=== PATIENT | female | born 1945 | race African-American/Black ===

== ENCOUNTER → 2016-09-08 | Outpatient (CLI) | payer BC ==
[2015-08-20 11:00] VITALS: BP 141/80
[~2016-09-08] MED LIST: ACET325T9 PO; ASPI-482 PO; DILT240C2 PO; HYDR-2868 PO; LOSA100T6 PO; MULT1TAB52 PO; OMEP20CA9 PO
--- NOTE | 2016-09-08 13:55 | RAD ---
DATE: 09/08/2016 EXAM: DIGITAL SCREEN BILAT W/CAD HISTORY: Breast nodule follow-up COMPARISON: 05/22/2015, 11/18/2014 This study was interpreted with the benefit of Computerized Aided Detection (CAD). The breast parenchyma shows scattered fibroglandular densities. Breast parenchyma level B. FINDINGS: There are scattered fibroglandular densities in both breasts in a multinodular pattern. No new or enlarging breast densities are seen. A biopsy marker is again noted laterally in the right breast. Calcifications located just anterior to the biopsy marker have coarsened. These have a benign appearance. There are other scattered benign type calcifications in both breasts. No suspicious microcalcifications have developed. IMPRESSION: Stable breast nodules suggesting a benign etiology. BI-RADS CATEGORY: 2 BENIGN FINDING(S) RECOMMENDED FOLLOW-UP: 12M 12 MONTH FOLLOW-UP PQRS compliance statement: Patient information was entered into a reminder system with a target due date for the next mammogram. Mammography is a sensitive method for finding small breast cancers, but it does not detect them all and is not a substitute for careful clinical examination. A negative mammogram does not negate a clinically suspicious finding and should not result in delay in biopsying a clinically suspicious abnormality. "Our facility is accredited by the [employer] Mammography Program."
== END | disposition home or self-care (01) ==
LOC: MAMMO 12:37
PROVIDERS: ATTEND Family Medicine
DX: Z12.31 Encounter for screening mammogram for malignant neoplasm of breast (principal)
CPT/HCPCS: G0202; 77067

== ENCOUNTER → 2017-02-13 | Outpatient (CLI) | payer BC ==
[2015-08-20 11:00] VITALS: BP 141/80
--- NOTE | 2017-02-13 16:18 | RAD ---
APPROVED REPORT Bilateral Lower Extremity Venous Study for DVT Patient Location: OUT-PATIENT Indications Lower Extremity Pain: Bilateral Lower Extremity Edema: Bilateral Vein Imaging (Right) CFV (R): Compressible SFJ (R): Compressible FEM (R): Compressible POP (R): Compressible DFV (R): Compressible PTV (R): Spontaneous GSV (R): Spontaneous Peroneals (R): Spontaneous Vein Imaging (Left) CFV (L): Compressible SFJ (L): Compressible FEM (L): Compressible POP (L): Compressible DFV (L): Compressible PTV (L): Spontaneous GSV (L): Spontaneous Peroneals (L): Spontaneous Doppler Evaluation (Right) CFV (R): Spontaneous POP (R):Spontaneous Doppler Evaluation (Left) CFV (L):Spontaneous POP (L):Spontaneous Findings Grayscale images of the bilateral deep veins were obtained and they appear to be fully compressible o n transfers imaging. Due to body habitus the below-knee veins and the superficial femoral vein were n ot well visualized but within these limitations the veins appear to be compressible. Color Doppler an d spectral images demonstrate normal flow patterns without any obstruction to flow. Critical Notification Critical Value: No <Conclusion> No evidence of thrombus in the bilateral lower extremity deep veins. Technically difficult study.
== END | disposition home or self-care (01) ==
LOC: US 15:15
PROVIDERS: ATTEND Internal Medicine Cardiovascular Disease
DX: I87.2 Venous insufficiency (chronic) (peripheral) (principal)
CPT/HCPCS: 93970

== ENCOUNTER → 2017-10-16 | Outpatient (CLI) | payer BC | END | disposition home or self-care (01) | LOC: ECHO 13:43 | DX: I07.1 Rheumatic tricuspid insufficiency (principal); R01.1 Cardiac murmur, unspecified | CPT/HCPCS: 93306 ==

== ENCOUNTER → 2017-10-30 | Outpatient (CLI) | payer BC | END | disposition home or self-care (01) | LOC: US 15:45 | DX: I70.293 Other atherosclerosis of native arteries of extremities, bilateral legs (principal); I10 Essential (primary) hypertension; K21.9 Gastro-esophageal reflux disease without esophagitis; Z96.653 Presence of artificial knee joint, bilateral; Z96.661 Presence of right artificial ankle joint; Z96.662 Presence of left artificial ankle joint | CPT/HCPCS: 93925; 93970 ==

== ENCOUNTER 2017-12-18 17:26 | Inpatient (IN) | payer BC ==
[~2017-12-18] VITALS: Ht 157.5 cm; Wt 73.0 kg
[~2017-12-18 17:26] MED LIST changes: -LOSA100T6 PO; +LOSA100T7 PO
[2017-12-18] MEDS ORDERED: PANTOPRAZOLE SODIUM IV DRIP 80 MG in IV NORMAL SALINE 100ML 100 ML IV ONE (19:30)
[2017-12-18] MEDS ORDERED: PANTOPRAZOLE IV PUSH 40 MG VIAL. IVP ONE (19:30)
[2017-12-18] MEDS ORDERED: IV NORMAL SALINE 1000ML BAG 1,000 ML IV ONE ×3 (19:30→21:30)
[2017-12-18] MEDS ORDERED: ONDANSETRON PF 4 MG/2 ML VIAL. ONE (19:31)
[2017-12-18 19:38] LABS: BASO % 0 % (0-3); EOS % 1 % (0-3); HEMATOCRIT 29.8 % (36.0-47.0); HEMOGLOBIN 9.9 g/dL (12.0-15.5); LYMPH # 2.4 x10^3/uL (1.0-4.8); LYMPH % 28 % (24-48); MEAN CORPUSCULAR HEMOGLOBIN 30 pg (25-35); MEAN CORPUSCULAR HGB CONC 33 g/dL (31-37); MEAN CORPUSCULAR VOLUME 90 fL (79-100); MONO % 12 % (0-9); NEUT # 5.3 x10^3uL (1.8-7.7); NEUT % 60 % (31-73); PLATELET COUNT 248 x10^3/uL (140-400); RED BLOOD COUNT 3.31 x10^6/uL (3.50-5.40); RED CELL DISTRIBUTION WIDTH 16.8 % (11.5-14.5); WHITE BLOOD COUNT 8.8 x10^3/uL (4.0-11.0)
[2017-12-18 19:42] LABS: CALCIUM 8.4 mg/dL (8.5-10.1); CREATININE 0.9 mg/dL (0.6-1.0); GFR 74.1; POTASSIUM 4.4 mmol/L (3.5-5.1)
[2017-12-18 19:44] LABS: PROTHROMBIN TIME PATIENT 12.6 SEC (11.7-14.0)
[2017-12-18] MEDS ORDERED: ONDANSETRON PF 4 MG/2 ML VIAL. IV ONE ×2 (19:45→21:30)
[2017-12-18] MEDS ORDERED: CONTRAST GIVEN. MC PRN (19:45)
[2017-12-18] MEDS ORDERED: IOHEXOL 300 MG/ML 100ML VIAL. IV ONE (19:45)
[2017-12-18 19:50] LABS: ALBUMIN 2.8 g/dL (3.4-5.0); ALBUMIN/GLOBULIN RATIO 0.8 (1.0-1.7); TOTAL BILIRUBIN 0.2 mg/dL (0.2-1.0); TOTAL PROTEIN 6.3 g/dL (6.4-8.2)
--- NOTE | 2017-12-18 21:01 | RAD ---
CT scan of the abdomen and pelvis with contrast 12/18/2017 CLINICAL HISTORY: Abdominal pain with blood in stool. TECHNIQUE: After the intravenous administration 75 cc of Omnipaque 300, contiguous, 5 mm axial sections were obtained through abdomen and pelvis One or more of the following individualized dose reduction techniques were utilized for this study: 1. Automated exposure control. 2. Adjustment of the mA and/or kV according to patient size. 3. Use of iterative reconstruction technique. FINDINGS: Comparison study is dated 02/21/2014. Images through the lung bases demonstrate minimal dependent subsegmental atelectasis bilaterally. There is mild cardiomegaly. The liver, spleen, pancreas, and adrenal glands are within normal limits. Rounded low-attenuation lesions are seen involving the superior pole of both kidneys, right greater than left. These measure 1.2 cm and 4 mm in size. They likely represent cysts. Atherosclerotic calcification of the abdominal aorta is seen. The abdominal aorta tapers normally. The gallbladder is contracted. No free fluid or free air is seen within the abdomen. There is no evidence of bowel obstruction. Images through the pelvis demonstrate the urinary bladder distended with urine. Calcified uterine fibroids are again seen unchanged. Calcifications are seen within the pelvis consistent with phleboliths. Degenerative changes are seen involving lower thoracic and throughout the lumbar spine and both hips. IMPRESSION: No acute abnormality is seen. Electronically signed by: Milton Olmedo MD (12/18/2017 8:57 PM) [facility]
--- NOTE | 2017-12-18 21:29 | PHYS DOC ---
Past Medical History Past Medical History: GERD, Hypertension, Hypotension, Other Additional Past Medical Histor: lymphedema Past Surgical History: , Knee Replacement Additional Past Surgical Histo: breast bx, cyst removed Alcohol Use: Occasionally Drug Use: None Adult General Chief Complaint Chief Complaint: BLOODY STOOL HPI HPI Patient is a 72 year old female presenting with profuse bleeding from her rectum. The patient notes that this afternoon she initially had some maroon- colored stools which progressed to dark-colored blood and clots passing. Patient notes her only blood thinning medication she takes is aspirin. Patient reports she was feeling well prior to the onset of symptoms. Patient denies any past history of GI bleed. Patient notes she now has abdominal pain nausea and nonbloody emesis. When patient arrived she had a decreased level of consciousness and responsiveness. Patient quickly became and fully alert and oriented after she was moved from the wheelchair to the bed in the emergency department. Review of Systems Review of Systems Constitutional: Denies fever or chills [] Eyes: Denies change in visual acuity, redness, or eye pain [] HENT: Denies nasal congestion or sore throat [] Respiratory: Denies cough or shortness of breath [] Cardiovascular: Denies chest pain or palpitations[] GI: Notes abdominal pain, nausea, vomiting, bloody stools, diarrhea [] : Denies dysuria or hematuria [] Musculoskeletal: Denies back pain or joint pain [] Integument: Denies rash or skin lesions [] Neurologic: Denies headache, focal weakness or sensory changes [] Complete systems were reviewed and found to be within normal limits, except as documented in this note. Current Medications Current Medications Current Medications Medications (Trade) Dose Ordered Sig/Brooke Start Time Stop Time Status Last Admin Dose Admin Info (CONTRAST GIVEN -- Rx MONITORING) 1 each PRN DAILY PRN 12/18/17 19:45 12/20/17 19:44 Iohexol (Omnipaque 300 Mg/ml) 75 ml 1X ONCE 12/18/17 19:45 12/18/17 19:46 DC 12/18/17 19:45 75 ML Ondansetron HCl (Zofran) 4 mg 1X ONCE 12/18/17 21:30 12/18/17 21:31 DC 12/18/17 22:50 4 MG Pantoprazole Sodium (PROTONIX VIAL for IV PUSH) 80 mg 1X ONCE 12/18/17 19:30 12/18/17 19:31 DC 12/18/17 19:34 80 MG Pantoprazole Sodium 80 mg/ Sodium Chloride 100 ml @ 10 mls/hr 1X ONCE 12/18/17 19:30 12/19/17 05:29 12/18/17 19:50 10 MLS/HR Sodium Chloride 1,000 ml @ 1,000 mls/hr 1X ONCE 12/18/17 21:30 12/18/17 22:29 DC 12/18/17 21:10 1,000 MLS/HR Allergies Allergies Allergies Coded Allergies Type Severity Reaction Last Updated Verified oxycodone Allergy Intermediate 08/17/15 Yes Physical Exam Physical Exam Constitutional: Well developed, well nourished, moderate distress non-toxic appearance. [] HENT: Normocephalic, atraumatic, oropharynx moist, no blood in oropharynx no oral exudates, nose normal. [] Eyes: PERRL, EOMI, conjunctiva normal, no discharge. [] Neck: Normal range of motion, no tenderness, supple, no meningismus. [] Cardiovascular:Heart rate regular rhythm, no murmur [] Lungs & Thorax: Bilateral breath sounds clear to auscultation [] Abdomen: Soft, nondistended diffuse tenderness to palpation, no masses, no pulsatile masses. [] Skin: Warm, dry, no erythema, no rash. [] Back: Chronic midline tenderness, no CVA tenderness. [] Extremities: No tenderness, no cyanosis, ROM intact, no edema. [] Neurologic: Alert and oriented X 3, normal motor function, normal sensory function, no focal deficits noted. [] Psychologic: Affect normal, judgement normal, mood normal. [] Current Patient Data Vital Signs Vital Signs Date Time Temp Pulse Resp B/P (MAP) Pulse Ox O2 Delivery O2 Flow Rate FiO2 12/18/17 19:18 97.4 84 14 149/81 (103) 100 Room Air 97.4 Lab Values Laboratory Tests Test 12/18/17 19:22 White Blood Count 8.8 x10^3/uL (4.0-11.0) Red Blood Count 3.31 x10^6/uL (3.50-5.40) L Hemoglobin 9.9 g/dL (12.0-15.5) L Hematocrit 29.8 % (36.0-47.0) L Mean Corpuscular Volume 90 fL (79-100) Mean Corpuscular Hemoglobin 30 pg (25-35) Mean Corpuscular Hemoglobin Concent 33 g/dL (31-37) Red Cell Distribution Width 16.8 % (11.5-14.5) H Platelet Count 248 x10^3/uL (140-400) Neutrophils (%) (Auto) 60 % (31-73) Lymphocytes (%) (Auto) 28 % (24-48) Monocytes (%) (Auto) 12 % (0-9) H Eosinophils (%) (Auto) 1 % (0-3) Basophils (%) (Auto) 0 % (0-3) Neutrophils # (Auto) 5.3 x10^3uL (1.8-7.7) Lymphocytes # (Auto) 2.4 x10^3/uL (1.0-4.8) Monocytes # (Auto) 1.0 x10^3/uL (0.0-1.1) Eosinophils # (Auto) 0.0 x10^3/uL (0.0-0.7) Basophils # (Auto) 0.0 x10^3/uL (0.0-0.2) Prothrombin Time 12.6 SEC (11.7-14.0) Prothrombin Time INR 1.0 (0.8-1.1) PTT 26 SEC (24-38) Sodium Level 140 mmol/L (136-145) Potassium Level 4.4 mmol/L (3.5-5.1) Chloride Level 107 mmol/L (98-107) Carbon Dioxide Level 25 mmol/L (21-32) Anion Gap 8 (6-14) Blood Urea Nitrogen 26 mg/dL (7-20) H Creatinine 0.9 mg/dL (0.6-1.0) Estimated GFR (Cockcroft-Gault) 74.1 BUN/Creatinine Ratio 29 (6-20) H Glucose Level 109 mg/dL (70-99) H Calcium Level 8.4 mg/dL (8.5-10.1) L Magnesium Level 1.9 mg/dL (1.8-2.4) Total Bilirubin 0.2 mg/dL (0.2-1.0) Aspartate Amino Transferase (AST) 14 U/L (15-37) L Alanine Aminotransferase (ALT) 15 U/L (14-59) Alkaline Phosphatase 51 U/L (46-116) Creatine Kinase 91 U/L (26-192) Creatine Kinase MB (Mass) 0.7 ng/mL (0.0-3.6) Creatine Kinase MB Relative Index 0.8 % (0-4) Troponin I Quantitative < 0.017 ng/mL (0.000-0.055) Total Protein 6.3 g/dL (6.4-8.2) L Albumin 2.8 g/dL (3.4-5.0) L Albumin/Globulin Ratio 0.8 (1.0-1.7) L Laboratory Tests 12/18/17 19:22 Laboratory Tests 12/18/17 19:22 EKG EKG @ 2110: NSR at 92bpm, LAFB, NO ST elevation, Q wave in I and aVL, nonspecific minimal ST depression in V6 Radiology/Procedures Radiology/Procedures PROCEDURE: CT ABD PELV W/ IV CONTRST ONLY CT scan of the abdomen and pelvis with contrast 12/18/2017 CLINICAL HISTORY: Abdominal pain with blood in stool. TECHNIQUE: After the intravenous administration 75 cc of Omnipaque 300, contiguous, 5 mm axial sections were obtained through abdomen and pelvis One or more of the following individualized dose reduction techniques were utilized for this study: 1. Automated exposure control. 2. Adjustment of the mA and/or kV according to patient size. 3. Use of iterative reconstruction technique. FINDINGS: Comparison study is dated 02/21/2014. Images through the lung bases demonstrate minimal dependent subsegmental atelectasis bilaterally. There is mild cardiomegaly. The liver, spleen, pancreas, and adrenal glands are within normal limits. Rounded low-attenuation lesions are seen involving the superior pole of both kidneys, right greater than left. These measure 1.2 cm and 4 mm in size. They likely represent cysts. Atherosclerotic calcification of the abdominal aorta is seen. The abdominal aorta tapers normally. The gallbladder is contracted. No free fluid or free air is seen within the abdomen. There is no evidence of bowel obstruction. Images through the pelvis demonstrate the urinary bladder distended with urine. Calcified uterine fibroids are again seen unchanged. Calcifications are seen within the pelvis consistent with phleboliths. Degenerative changes are seen involving lower thoracic and throughout the lumbar spine and both hips. IMPRESSION: No acute abnormality is seen. Electronically signed by: Milton Olmedo MD (12/18/2017 8:57 PM) [facility] Course & Med Decision Making Course & Med Decision Making 72-year-old female presenting with acute onset dark blood and clots actively passing per rectum. Patient notes this afternoon she started having maroon colored stools which quickly progressed to large volume of dark clotted blood passing multiple times. Patient reports she was feeling well up until the onset of symptoms. Patient initially had decreased responsiveness on arrival but quickly regained full consciousness and was alert and oriented 4. Labs, EKG, and imaging collected and evaluated. CT abdomen and pelvis with contrast does not show any intra-abdominal abnormality. Initial hemoglobin 9.9, normal PT/ INR. Patient immediately had 2 large bore IVs placed with 2 L of normal saline boluses. Due to large volume of clotted blood actively hemorrhaging from the patient's rectum 2 units packed red blood cells were ordered. Patient given Zofran, Protonix, but refused any pain medication. GI was consulted, and requested that a nuclear medicine bleeding scan was ordered. Patient requiring admission to the ICU for further evaluation and treatment. Discussed with Dr. Montero who is in agreement with admission. Discussed findings and plan with patient and family, who acknowledge understanding and agreement. Dragon Disclaimer Dragon Disclaimer This electronic medical record was generated, in whole or in part, using a voice recognition dictation system. Departure Departure Impression: Primary Impression: Acute lower GI bleeding Disposition: ADMITTED INPATIENT Admitting Physician: Calos Montero Condition: GUARDED Referrals: Bienvenido MONTERO MD (PCP) AILYN AIKEN DO Dec 18, 2017 21:29
[2017-12-18] MEDS ORDERED: fentaNYL PF VIAL 100 MCG/2 ML VIAL IV PRN (21:45)
[2017-12-18] MEDS ORDERED: ONDANSETRON PF 4 MG/2 ML VIAL. IV PRN (21:45)
--- NOTE | 2017-12-18 22:09 | EKG ---
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
[2017-12-18 23:00] VITALS: BP 130/79
[2017-12-18 23:15] VITALS: BP 133/78
[2017-12-18 23:40] LABS: HEMOGLOBIN 8.6 g/dL (12.0-15.5); RED BLOOD COUNT 2.88 x10^6/uL (3.50-5.40); RED CELL DISTRIBUTION WIDTH 16.9 % (11.5-14.5); WHITE BLOOD COUNT 11.9 x10^3/uL (4.0-11.0)
[2017-12-19] VITALS (24 sets, daily range): BP systolic 115–163; BP diastolic 68–95
--- NOTE | 2017-12-19 01:30 | RAD ---
Examination: Nuclear medicine GI bleed scan Clinical History: GI bleed 30 mCi Tc-99 m labeled red blood cells were administered via ultratag kit and spot view of the abdomen and pelvis was obtained by gamma camera for a nuclear medicine tagged red blood cell GI bleed study. Findings: There is activity seen within the vascular pool. There is no accumulation or propagation of activity to suggest an active bleed. Impression: Negative examination. Electronically signed by: Aleksey Arreguin MD (12/19/2017 1:27 AM) [facility]
[2017-12-19] MEDS ORDERED: ASPI-630 PO (01:41)
[2017-12-19] MEDS ORDERED: PANTOPRAZOLE SODIUM IV DRIP 80 MG in IV NORMAL SALINE 100ML 100 ML IV SCH (02:30)
[2017-12-19 05:36] LABS: HEMATOCRIT 29.2 % (36.0-47.0); HEMOGLOBIN 10.1 g/dL (12.0-15.5); RED BLOOD COUNT 3.23 x10^6/uL (3.50-5.40); RED CELL DISTRIBUTION WIDTH 15.9 % (11.5-14.5); WHITE BLOOD COUNT 8.3 x10^3/uL (4.0-11.0)
--- NOTE | 2017-12-19 08:44 | PDOC1 ---
History and Physical Date of Admission Date of Admission 12/18/17 Identification/Chief Complaint Chief Complaint lower GI bleeding, initially maroon colored, no abdominal pain, came to ER and noted to have clots, admitted into ICU on Protonix drip and received 2 units pRBC and bleeding has seemed to have stopped, Hgb 10.1 this am and vitals stable and she is comfortable. She was just seen in office 12/08/17 for annual well exam and had GI bloating evaluated with negative H. pylori breath test but treated with Prilosec 40 mg daily. She also had recent UTI and was Rxed cipro but she is not taking it. Hgb on 12/12/17 was 11.7, CMP was normal Past Medical History Cardiovascular: HTN, Hyperlipidemia, Other (lymphedema) GI: GERD, GI bleed (diverticular, 2016) Rheumatologic: Other (spondylosis of spine) Renal/: Other (OAB) Endocrine: Osteoporosis Past Surgical History Past Surgical History: , Total knee replacement (breast cyst removal) , Other Family History Family History: Other Social History ALCOHOL: none Drugs: None Current Problem List Problem List Problems Medical Problems: (1) Acute lower GI bleeding Status: Acute Current Medications Current Medications Current Medications Medications (Trade) Dose Ordered Sig/Brooke Start Time Stop Time Status Last Admin Dose Admin Fentanyl Citrate (Fentanyl 2ml Vial) 50 mcg PRN Q2HR PRN 12/18/17 21:45 12/19/17 21:44 Info (CONTRAST GIVEN -- Rx MONITORING) 1 each PRN DAILY PRN 12/18/17 19:45 12/20/17 19:44 Iohexol (Omnipaque 300 Mg/ml) 75 ml 1X ONCE 12/18/17 19:45 12/18/17 19:46 DC 12/18/17 19:45 75 ML Ondansetron HCl (Zofran) 4 mg PRN Q8HRS PRN 12/18/17 21:45 12/19/17 21:44 Pantoprazole Sodium (PROTONIX VIAL for IV PUSH) 80 mg 1X ONCE 12/18/17 19:30 12/18/17 19:31 DC 12/18/17 19:34 80 MG Pantoprazole Sodium 80 mg/ Sodium Chloride 100 ml @ 10 mls/hr Q10H 12/19/17 02:30 12/21/17 17:30 12/19/17 04:03 10 MLS/HR Sodium Chloride 1,000 ml @ 1,000 mls/hr 1X ONCE 12/18/17 21:30 12/18/17 22:29 DC 12/18/17 21:10 1,000 MLS/HR Allergies Allergies Allergies Coded Allergies Type Severity Reaction Last Updated Verified oxycodone Allergy Intermediate 08/17/15 Yes ROS Review of System CONSTITUTIONAL: No fever or chills EYES: No recent changes SKIN: No rash or itching CARDIOVASCULAR: No chest pain, syncope, palpitations, or edema RESPIRATORY: No SOB or cough GASTROINTESTINAL: No nausea, vomiting or abdominal pain NEUROLOGICAL: No headaches or weakness, positive for right leg radicular pain from back ENDOCRINE: No cold or heat intolerance GENITOURINARY: No urgency or frequency of urination MUSCULOSKELETAL: s/p bilateral TKRs, ambulatory, no falls LYMPHATICS: No enlarged lymph nodes PSYCHIATRIC: No anxiety or depression Physical Exam Physical Exam GEN.: No apparent distress. Alert and oriented. HEENT: Head is normocephalic, atraumatic NECK: Supple. LUNGS: Clear to auscultation. HEART: RRR with 2/6 murmur, S1, S2 present. Peripheral pulses intact ABDOMEN: Soft, nontender. Positive bowel sounds. EXTREMITIES: Without any cyanosis, mild lymphedema but compression wraps on. NEUROLOGIC: Normal speech, normal tone PSYCHIATRIC: Normal affect, normal mood. SKIN: No ulcerations Vitals Vitals Vital Signs Date Time Temp Pulse Resp B/P (MAP) Pulse Ox O2 Delivery O2 Flow Rate FiO2 12/19/17 07:00 79 24 143/81 (101) 94 Room Air 12/19/17 04:00 98.3 98.3 Labs Labs Laboratory Tests Test 12/18/17 19:22 12/18/17 23:34 12/19/17 05:10 White Blood Count 8.8 x10^3/uL (4.0-11.0) 11.9 x10^3/uL (4.0-11.0) 8.3 x10^3/uL (4.0-11.0) Red Blood Count 3.31 x10^6/uL (3.50-5.40) 2.88 x10^6/uL (3.50-5.40) 3.23 x10^6/uL (3.50-5.40) Hemoglobin 9.9 g/dL (12.0-15.5) 8.6 g/dL (12.0-15.5) 10.1 g/dL (12.0-15.5) Hematocrit 29.8 % (36.0-47.0) 26.0 % (36.0-47.0) 29.2 % (36.0-47.0) Mean Corpuscular Volume 90 fL (79-100) 90 fL (79-100) 90 fL (79-100) Mean Corpuscular Hemoglobin 30 pg (25-35) 30 pg (25-35) 31 pg (25-35) Mean Corpuscular Hemoglobin Concent 33 g/dL (31-37) 33 g/dL (31-37) 35 g/dL (31-37) Red Cell Distribution Width 16.8 % (11.5-14.5) 16.9 % (11.5-14.5) 15.9 % (11.5-14.5) Platelet Count 248 x10^3/uL (140-400) 204 x10^3/uL (140-400) 170 x10^3/uL (140-400) Neutrophils (%) (Auto) 60 % (31-73) Lymphocytes (%) (Auto) 28 % (24-48) Monocytes (%) (Auto) 12 % (0-9) Eosinophils (%) (Auto) 1 % (0-3) Basophils (%) (Auto) 0 % (0-3) Neutrophils # (Auto) 5.3 x10^3uL (1.8-7.7) Lymphocytes # (Auto) 2.4 x10^3/uL (1.0-4.8) Monocytes # (Auto) 1.0 x10^3/uL (0.0-1.1) Eosinophils # (Auto) 0.0 x10^3/uL (0.0-0.7) Basophils # (Auto) 0.0 x10^3/uL (0.0-0.2) Prothrombin Time 12.6 SEC (11.7-14.0) Prothromb Time International Ratio 1.0 (0.8-1.1) Activated Partial Thromboplast Time 26 SEC (24-38) Sodium Level 140 mmol/L (136-145) Potassium Level 4.4 mmol/L (3.5-5.1) Chloride Level 107 mmol/L (98-107) Carbon Dioxide Level 25 mmol/L (21-32) Anion Gap 8 (6-14) Blood Urea Nitrogen 26 mg/dL (7-20) Creatinine 0.9 mg/dL (0.6-1.0) Estimated GFR (Cockcroft-Gault) 74.1 BUN/Creatinine Ratio 29 (6-20) Glucose Level 109 mg/dL (70-99) Calcium Level 8.4 mg/dL (8.5-10.1) Magnesium Level 1.9 mg/dL (1.8-2.4) Total Bilirubin 0.2 mg/dL (0.2-1.0) Aspartate Amino Transf (AST/SGOT) 14 U/L (15-37) Alanine Aminotransferase (ALT/SGPT) 15 U/L (14-59) Alkaline Phosphatase 51 U/L (46-116) Creatine Kinase 91 U/L (26-192) Creatine Kinase MB (Mass) 0.7 ng/mL (0.0-3.6) Creatine Kinase MB Relative Index 0.8 % (0-4) Troponin I Quantitative < 0.017 ng/mL (0.000-0.055) Total Protein 6.3 g/dL (6.4-8.2) Albumin 2.8 g/dL (3.4-5.0) Albumin/Globulin Ratio 0.8 (1.0-1.7) Laboratory Tests Test 12/18/17 19:22 12/18/17 23:34 12/19/17 05:10 White Blood Count 8.8 x10^3/uL (4.0-11.0) 11.9 x10^3/uL (4.0-11.0) 8.3 x10^3/uL (4.0-11.0) Red Blood Count 3.31 x10^6/uL (3.50-5.40) 2.88 x10^6/uL (3.50-5.40) 3.23 x10^6/uL (3.50-5.40) Hemoglobin 9.9 g/dL (12.0-15.5) 8.6 g/dL (12.0-15.5) 10.1 g/dL (12.0-15.5) Hematocrit 29.8 % (36.0-47.0) 26.0 % (36.0-47.0) 29.2 % (36.0-47.0) Mean Corpuscular Volume 90 fL (79-100) 90 fL (79-100) 90 fL (79-100) Mean Corpuscular Hemoglobin 30 pg (25-35) 30 pg (25-35) 31 pg (25-35) Mean Corpuscular Hemoglobin Concent 33 g/dL (31-37) 33 g/dL (31-37) 35 g/dL (31-37) Red Cell Distribution Width 16.8 % (11.5-14.5) 16.9 % (11.5-14.5) 15.9 % (11.5-14.5) Platelet Count 248 x10^3/uL (140-400) 204 x10^3/uL (140-400) 170 x10^3/uL (140-400) Neutrophils (%) (Auto) 60 % (31-73) Lymphocytes (%) (Auto) 28 % (24-48) Monocytes (%) (Auto) 12 % (0-9) Eosinophils (%) (Auto) 1 % (0-3) Basophils (%) (Auto) 0 % (0-3) Neutrophils # (Auto) 5.3 x10^3uL (1.8-7.7) Lymphocytes # (Auto) 2.4 x10^3/uL (1.0-4.8) Monocytes # (Auto) 1.0 x10^3/uL (0.0-1.1) Eosinophils # (Auto) 0.0 x10^3/uL (0.0-0.7) Basophils # (Auto) 0.0 x10^3/uL (0.0-0.2) Prothrombin Time 12.6 SEC (11.7-14.0) Prothromb Time International Ratio 1.0 (0.8-1.1) Activated Partial Thromboplast Time 26 SEC (24-38) Sodium Level 140 mmol/L (136-145) Potassium Level 4.4 mmol/L (3.5-5.1) Chloride Level 107 mmol/L (98-107) Carbon Dioxide Level 25 mmol/L (21-32) Anion Gap 8 (6-14) Blood Urea Nitrogen 26 mg/dL (7-20) Creatinine 0.9 mg/dL (0.6-1.0) Estimated GFR (Cockcroft-Gault) 74.1 BUN/Creatinine Ratio 29 (6-20) Glucose Level 109 mg/dL (70-99) Calcium Level 8.4 mg/dL (8.5-10.1) Magnesium Level 1.9 mg/dL (1.8-2.4) Total Bilirubin 0.2 mg/dL (0.2-1.0) Aspartate Amino Transf (AST/SGOT) 14 U/L (15-37) Alanine Aminotransferase (ALT/SGPT) 15 U/L (14-59) Alkaline Phosphatase 51 U/L (46-116) Creatine Kinase 91 U/L (26-192) Creatine Kinase MB (Mass) 0.7 ng/mL (0.0-3.6) Creatine Kinase MB Relative Index 0.8 % (0-4) Troponin I Quantitative < 0.017 ng/mL (0.000-0.055) Total Protein 6.3 g/dL (6.4-8.2) Albumin 2.8 g/dL (3.4-5.0) Albumin/Globulin Ratio 0.8 (1.0-1.7) VTE Prophylaxis Ordered VTE Prophylaxis Devices: No VTE Pharmacological Prophylaxi: Contraindicated Assessment/Plan Assessment/Plan acute blood loss anemia from GI bleeding, s/p transfusion of 2 units pRBC, Hgb now stable and no evidence of current bleeding, GI consulted, she has had recent upper GI symptoms of bloating and nausea but recent H. pylori breath testing was negative and CMP, CBC were normal and she has been on omeprazole 40 mg daily hx of diverticular bleed 2016 OAB HTN GERD Heart murmur chronic lymphedema of legs hx of superficial thrombophlebitis of left lower extremity UTI - recently prescribed Bienvenido Gonzáles MD Dec 19, 2017 08:44
--- NOTE | 2017-12-19 09:32 | PDOC2 ---
GI CONSULT Reason For Consult: Acute GI bleeding HPI: HPI: 72 y/o female admitted to ICU through ER. Yesterday had some abd cramping and then passed some stool w/ dark red blood. Bleeding continued - significant amount. Similar symptoms twice before - we saw her in 08/[address] Concepcion saw her in 2013, thought to be related to diverticular disease. EGD and colonoscopy in 02/2014 (Dr. Concepcion) showed mild gastritis, small descending colon polyps (path unavailable), moderate diverticulosis from sigmoid to cecum, and internal hemorrhoids. H/o reflux improved w/ omeprazole PRN 3-4 times weekly. No dysphagia. No n/v. Typically no issues w/ abd pain or bleeding. No diarrhea. Occasional mild constipation improved w/ eating prunes. No weight loss or change in appetite. Denies CP, SOA, or dizziness but says she fainted in the ER. No GB, liver, or pancreas history. Takes ASA QD, no NSAIDs. D/w Dr. Villatoro - on antibiotics recently for dental extraction and UTI but she stopped both due to muscle aches. We we saw her in 08/2015, Hgb was in the 10 range. On admission was 9.9, then 8.6, and today 10.1 s/p transfusion 2 units. Bleding scan was negative. CT was unrevealing for acute issue. Has been kept NPO on PPI drip. No bleeding since arriving to ICU. PMH: PMH: HTN, GERD, colon polyp, diverticulosis, hemorrhoids, breast biopsy and cyst removal, x 3, left knee surgery FH: Family History: No pertinent hx (denies GI cancers) Social History: Smoke: No ALCOHOL: none Drugs: None ROS: GEN: Denies fevers, chills, sweats HEENT: Denies blurred vision, sore throat CV: Denies chest pain RESP: Denies shortness of air, cough GI: Per HPI : Denies hematuria, dysuria ENDO: Denies weight changes NEURO: Denies confusion, dizziness MSK: +chronic back pain SKIN: Denies jaundice, pruritus Vitals: Vitals: Vital Signs Date Time Temp Pulse Resp B/P (MAP) Pulse Ox O2 Delivery O2 Flow Rate FiO2 12/19/17 07:00 79 24 143/81 (101) 94 Room Air 12/19/17 04:00 98.3 98.3 Labs: Labs: Laboratory Tests Test 12/18/17 19:22 12/18/17 23:34 12/19/17 05:10 White Blood Count 8.8 x10^3/uL (4.0-11.0) 11.9 x10^3/uL (4.0-11.0) 8.3 x10^3/uL (4.0-11.0) Red Blood Count 3.31 x10^6/uL (3.50-5.40) 2.88 x10^6/uL (3.50-5.40) 3.23 x10^6/uL (3.50-5.40) Hemoglobin 9.9 g/dL (12.0-15.5) 8.6 g/dL (12.0-15.5) 10.1 g/dL (12.0-15.5) Hematocrit 29.8 % (36.0-47.0) 26.0 % (36.0-47.0) 29.2 % (36.0-47.0) Mean Corpuscular Volume 90 fL (79-100) 90 fL (79-100) 90 fL (79-100) Mean Corpuscular Hemoglobin 30 pg (25-35) 30 pg (25-35) 31 pg (25-35) Mean Corpuscular Hemoglobin Concent 33 g/dL (31-37) 33 g/dL (31-37) 35 g/dL (31-37) Red Cell Distribution Width 16.8 % (11.5-14.5) 16.9 % (11.5-14.5) 15.9 % (11.5-14.5) Platelet Count 248 x10^3/uL (140-400) 204 x10^3/uL (140-400) 170 x10^3/uL (140-400) Neutrophils (%) (Auto) 60 % (31-73) Lymphocytes (%) (Auto) 28 % (24-48) Monocytes (%) (Auto) 12 % (0-9) Eosinophils (%) (Auto) 1 % (0-3) Basophils (%) (Auto) 0 % (0-3) Neutrophils # (Auto) 5.3 x10^3uL (1.8-7.7) Lymphocytes # (Auto) 2.4 x10^3/uL (1.0-4.8) Monocytes # (Auto) 1.0 x10^3/uL (0.0-1.1) Eosinophils # (Auto) 0.0 x10^3/uL (0.0-0.7) Basophils # (Auto) 0.0 x10^3/uL (0.0-0.2) Prothrombin Time 12.6 SEC (11.7-14.0) Prothromb Time International Ratio 1.0 (0.8-1.1) Activated Partial Thromboplast Time 26 SEC (24-38) Sodium Level 140 mmol/L (136-145) Potassium Level 4.4 mmol/L (3.5-5.1) Chloride Level 107 mmol/L (98-107) Carbon Dioxide Level 25 mmol/L (21-32) Anion Gap 8 (6-14) Blood Urea Nitrogen 26 mg/dL (7-20) Creatinine 0.9 mg/dL (0.6-1.0) Estimated GFR (Cockcroft-Gault) 74.1 BUN/Creatinine Ratio 29 (6-20) Glucose Level 109 mg/dL (70-99) Calcium Level 8.4 mg/dL (8.5-10.1) Magnesium Level 1.9 mg/dL (1.8-2.4) Total Bilirubin 0.2 mg/dL (0.2-1.0) Aspartate Amino Transf (AST/SGOT) 14 U/L (15-37) Alanine Aminotransferase (ALT/SGPT) 15 U/L (14-59) Alkaline Phosphatase 51 U/L (46-116) Creatine Kinase 91 U/L (26-192) Creatine Kinase MB (Mass) 0.7 ng/mL (0.0-3.6) Creatine Kinase MB Relative Index 0.8 % (0-4) Troponin I Quantitative < 0.017 ng/mL (0.000-0.055) Total Protein 6.3 g/dL (6.4-8.2) Albumin 2.8 g/dL (3.4-5.0) Albumin/Globulin Ratio 0.8 (1.0-1.7) Allergies: Coded Allergies: oxycodone (Verified Allergy, Intermediate, 08/17/15) Medications: Current Medications Medications (Trade) Dose Ordered Sig/Brooke Route PRN Reason Start Time Stop Time Status Last Admin Dose Admin Sodium Chloride 1,000 ml @ 1,000 mls/hr 1X ONCE IV 12/18/17 19:30 12/18/17 20:29 DC 12/18/17 19:25 Sodium Chloride 1,000 ml @ 1,000 mls/hr 1X ONCE IV 12/18/17 19:30 12/18/17 20:29 DC 12/18/17 19:25 Pantoprazole Sodium (PROTONIX VIAL for IV PUSH) 80 mg 1X ONCE IVP 12/18/17 19:30 12/18/17 19:31 DC 12/18/17 19:34 Pantoprazole Sodium 80 mg/ Sodium Chloride 100 ml @ 10 mls/hr 1X ONCE IV 12/18/17 19:30 12/19/17 05:29 DC 12/18/17 19:50 Ondansetron HCl (Zofran) 4 mg 1X ONCE IV 12/18/17 19:45 12/18/17 19:46 DC 12/18/17 19:33 Iohexol (Omnipaque 300 Mg/ml) 75 ml 1X ONCE IV 12/18/17 19:45 12/18/17 19:46 DC 12/18/17 19:45 Sodium Chloride 1,000 ml @ 1,000 mls/hr 1X ONCE IV 12/18/17 21:30 12/18/17 22:29 DC 12/18/17 21:10 Ondansetron HCl (Zofran) 4 mg 1X ONCE IV 12/18/17 21:30 12/18/17 21:31 DC 12/18/17 22:50 Pantoprazole Sodium 80 mg/ Sodium Chloride 100 ml @ 10 mls/hr Q10H IV 12/19/17 02:30 12/21/17 17:30 12/19/17 04:03 Imaging: Imaging: CT A/P Images through the lung bases demonstrate minimal dependent subsegmental atelectasis bilaterally. There is mild cardiomegaly. The liver, spleen, pancreas, and adrenal glands are within normal limits. Rounded low-attenuation lesions are seen involving the superior pole of both kidneys, right greater than left. These measure 1.2 cm and 4 mm in size. They likely represent cysts. Atherosclerotic calcification of the abdominal aorta is seen. The abdominal aorta tapers normally. The gallbladder is contracted. No free fluid or free air is seen within the abdomen. There is no evidence of bowel obstruction. Images through the pelvis demonstrate the urinary bladder distended with urine. Calcified uterine fibroids are again seen unchanged. Calcifications are seen within the pelvis consistent with phleboliths. Degenerative changes are seen involving lower thoracic and throughout the lumbar spine and both hips. IMPRESSION: No acute abnormality is seen. GI Bleed Scan Impression: Negative examination. PE: GEN: NAD HEENT: Atraumatic, PERRL LUNGS: CTAB HEART: RRR ABD: NABS, S/ND/NT EXTREMITY: No edema SKIN: No rashes, no jaundice NEURO/PSYCH: A & O 3 A/P: A/P: Rectal bleeding -seems recurrent issue, occurred in 2013 and 2015, thought probably diverticular -'scopes in 2014: gastritis, small colon polyp, diverticulosis (from sigmoid to cecum), hemorrhoids -takes ASA + PRN PPI for GERD -bleeding scan negative, CT unrevealing Anemia - Hgb 10.1 s/p transfusion -- Would continue NPO w/ ice chips. Hold ASA. Can change PPI drip to IV push. Monitor labs and for rebleeding. Recurrent issue - could consider repeating colonoscopy as outpt (she declined last time) or eventually surgical consult. THONY CONSTANTINO Dec 19, 2017 09:32
[2017-12-19 15:17] LABS: BILIRUBIN,URINE NEGATIVE (NEG); CLARITY,URINE CLEAR; COLOR,URINE YELLOW; NITRITE,URINE NEGATIVE (NEG); PH,URINE 6.5; PROTEIN,URINE NEGATIVE (NEG-TRACE); UROBILINOGEN,URINE 0.2 mg/dL (0.2 mg/dL)
[2017-12-19 15:31] LABS: BACTERIA,URINE MANY /HPF (0-FEW); RBC,URINE 0 /HPF (0-2); SQUAMOUS EPITHELIAL CELL,UR FEW /LPF
[2017-12-20 03:00] VITALS: BP 152/98
[2017-12-20 05:09] LABS: BASO % 1 % (0-3); EOS # 0.1 x10^3/uL (0.0-0.7); EOS % 1 % (0-3); HEMATOCRIT 32.9 % (36.0-47.0); HEMOGLOBIN 11.2 g/dL (12.0-15.5); LYMPH # 2.1 x10^3/uL (1.0-4.8); LYMPH % 23 % (24-48); MEAN CORPUSCULAR HEMOGLOBIN 31 pg (25-35); MEAN CORPUSCULAR HGB CONC 34 g/dL (31-37); MEAN CORPUSCULAR VOLUME 90 fL (79-100); MONO % 11 % (0-9); NEUT # 5.9 x10^3uL (1.8-7.7); NEUT % 65 % (31-73); PLATELET COUNT 210 x10^3/uL (140-400); RED BLOOD COUNT 3.65 x10^6/uL (3.50-5.40); WHITE BLOOD COUNT 9.1 x10^3/uL (4.0-11.0)
[2017-12-20 05:35] LABS: CALCIUM 9.6 mg/dL (8.5-10.1); CREATININE 0.9 mg/dL (0.6-1.0); GFR 74.1; POTASSIUM 3.5 mmol/L (3.5-5.1)
[2017-12-20 07:00] VITALS: BP 153/89
[2017-12-20] MEDS ORDERED: PANTOPRAZOLE IV PUSH 40 MG VIAL. IVP SCH (07:30)
[2017-12-20] MEDS ORDERED: IV RINGERS,LACTATED 1000ML 1,000 ML IV SCH (08:16)
[2017-12-20] MEDS ORDERED: LIDOCAINE 1% PF 2 ML VIAL. ID PRN (08:30)
[2017-12-20] MEDS ORDERED: MIDAZOLAM HCL/PF 2 MG/2 ML VIAL. IV PRN (08:30)
[2017-12-20] MEDS ORDERED: fentaNYL PF VIAL 100 MCG/2 ML VIAL IV PRN ×2 (08:30)
[2017-12-20] MEDS ORDERED: PROPOFOL 20 ML IV ONE (08:50)
--- NOTE | 2017-12-20 09:12 | PDOC4 ---
Operative Note Operative Note EGD Meds propofol per anesthesia Pre-op dx melena /acute blood loss anemia Post-op dx non-erosive gastritis Plan advance diet stop PPI therapy release per primary LATHA GOMEZ MD Dec 20, 2017 09:12
[2017-12-20 11:00] VITALS: BP 150/87
[2017-12-20 15:00] VITALS: BP 151/85
--- NOTE | 2017-12-20 15:04 | PDOC ---
PROGRESS NOTES Subjective EGD showed gastritis, non erosive, no further bleeding, had BM, not eaten yet Objective Afebrile General: NAD Heart: RRR with 2/6 murmur Lungs: CTA Abd: soft, non tender Ext: no edema Hgb: stable K+: 3.5 Creat: baseline Vital Signs Vital Signs Date Time Temp Pulse Resp B/P (MAP) Pulse Ox O2 Delivery O2 Flow Rate FiO2 12/20/17 11:00 97.9 80 20 150/87 (108) 98 Room Air 97.9 12/20/17 09:08 2 I & O Intake and Output 12/20/17 07:00 Intake Total 568.58 ml Output Total 250 ml Balance 318.58 ml Intake Oral 480 ml IV Total 88.58 ml Output Urine Total 250 ml # Voids 9 Assessment and Plan A/P (1) Acute GI bleeding - advance diet and it tolerated and does not have additional bleeding then discharge tomorrow Status: Acute Bienvenido MONTERO MD Dec 20, 2017 15:04
[2017-12-20 19:00] VITALS: BP 147/80
[2017-12-20 23:00] VITALS: BP 148/86
[2017-12-21 03:00] VITALS: BP 155/94
[2017-12-21 07:00] VITALS: BP 147/82
[2017-12-21] MEDS ORDERED: LOSARTAN POTASSIUM 50 MG TABLET. PO SCH (09:00)
[2017-12-21] MEDS ORDERED: ACETAMINOPHEN 325 MG TABLET. PO SCH (09:00)
[2017-12-21] MEDS ORDERED: hydrALAZINE 25 MG TABLET PO SCH (09:00)
[2017-12-21] MEDS: MULTIVITAMIN with MINERAL TABLET. PO SCH (09:42)
[2017-12-21 11:00] VITALS: BP 137/90
--- NOTE | 2017-12-21 11:12 | PDOC ---
Subjective: Subjective: Just had BM w/ significant bright and dark red blood. Feels a little abd discomfort, but overall feeling okay. Objective: Vital Signs: Vital Signs Date Time Temp Pulse Resp B/P (MAP) Pulse Ox O2 Delivery O2 Flow Rate FiO2 12/21/17 09:42 70 147/82 12/21/17 07:00 97.7 97 Room Air 97.7 12/21/17 03:00 2.0 12/20/17 23:00 20 Imaging: EGD non-erosive gastritis PE: GEN: NAD, walking from restroom to bed LUNGS: CTAB HEART: RRR ABD: S/ND/NT NEURO/PSYCH: A & O 3 A/P: Recurrent rectal bleeding -presumed diverticular bleeds in 2013 and 2015, last colonoscopy in 2013 -EGD, bleeding scan, CT unrevealing -Hgb improved yesterday -- Bleeding recurred this morning. Recheck labs, hold diet. Reviewed w/ Propeck - bleeding scan. THONY CONSTANTINO Dec 21, 2017 11:12
[2017-12-21 11:51] LABS: HEMATOCRIT 29.1 % (36.0-47.0); HEMOGLOBIN 9.7 g/dL (12.0-15.5); RED BLOOD COUNT 3.2 x10^6/uL (3.50-5.40); RED CELL DISTRIBUTION WIDTH 15.7 % (11.5-14.5); WHITE BLOOD COUNT 9.1 x10^3/uL (4.0-11.0)
[2017-12-21] MEDS ORDERED: HEPARIN for NUC MED 500 UNIT/5 ML DISP.SYRIN. IV ONE (12:30)
--- NOTE | 2017-12-21 12:53 | EKG ---
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
[2017-12-21] MEDS ORDERED: ONDANSETRON PF 4 MG/2 ML VIAL. IV PRN (13:15)
[2017-12-21] MEDS ORDERED: IV NORMAL SALINE 1000ML BAG 1,000 ML IV ONE (13:15)
[2017-12-21 13:34] LABS: HEMATOCRIT 28.9 % (36.0-47.0); HEMOGLOBIN 9.7 g/dL (12.0-15.5); RED BLOOD COUNT 3.18 x10^6/uL (3.50-5.40); RED CELL DISTRIBUTION WIDTH 16.2 % (11.5-14.5); WHITE BLOOD COUNT 10.1 x10^3/uL (4.0-11.0)
--- NOTE | 2017-12-21 14:37 | PDOC ---
PROGRESS NOTES Subjective She was seen this am with plan for discharge if she had a normal BM but her BM was bloody and she has had additional bright red blood since after eating dinner last night and breakfast this am. She became hypotensive with second episode of bleeding, her hgb has dropped 2 grams from yesterday, she has been seen by GI, she is getting a fluid bolus and has been typed and screened. a bleeding scan is ordered Objective Afebrile BP: [] General: [] Heart: [] Lungs: [] Abd: [] Ext: [] WBC: [] Hgb: [] K+: [] Creat: [] Vital Signs Vital Signs Date Time Temp Pulse Resp B/P (MAP) Pulse Ox O2 Delivery O2 Flow Rate FiO2 12/21/17 11:00 97.7 98 18 137/90 (106) 98 Room Air 97.7 12/21/17 03:00 2.0 I & O Intake and Output 12/21/17 07:00 Intake Total 120 ml Balance 120 ml Intake Oral 120 ml # Voids 5 Assessment and Plan Problems Medical Problems: (1) Acute lower GI bleeding - bleeding recurred today, Hgb drop to 9.7, bleeding scan currently in progress, her BP meds were held until this am since admission but were ordered prior to her reaumption of bleeding so will again be held, she has not received any aspirin since admission and it has been discontinued Status: Bienvenido Gillespie MD Dec 21, 2017 14:37
[2017-12-21 15:00] VITALS: BP 132/72
[2017-12-21] MEDS: IV NORMAL SALINE 1000ML BAG 1,000 ML IV SCH (15:34)
--- NOTE | 2017-12-21 15:35 | RAD ---
Radionuclide GI bleed scan, 12/21/2017: HISTORY: Bloody stools The study was performed utilizing 33 mCi of technetium 99m and a labeled red blood cell technique. Imaging out to 1 hour showed no abnormal accumulation of activity in the abdomen or pelvis to suggest active GI tract bleeding. IMPRESSION: Negative radionuclide GI bleeding scan. Electronically signed by: Tesfaye Blackman MD (12/21/2017 3:32 PM) [facility]
[2017-12-21 17:58] LABS: HEMATOCRIT 24.8 % (36.0-47.0); HEMOGLOBIN 8.4 g/dL (12.0-15.5)
[2017-12-21 19:00] VITALS: BP 128/69
[2017-12-21 23:00] VITALS: BP 135/77
[2017-12-22 01:39] LABS: HEMATOCRIT 23.9 % (36.0-47.0); RED BLOOD COUNT 2.62 x10^6/uL (3.50-5.40); RED CELL DISTRIBUTION WIDTH 16.1 % (11.5-14.5); WHITE BLOOD COUNT 8.7 x10^3/uL (4.0-11.0)
[2017-12-22 03:00] VITALS: BP 124/75
[2017-12-22 05:28] LABS: HEMATOCRIT 23.6 % (36.0-47.0); RED BLOOD COUNT 2.59 x10^6/uL (3.50-5.40); RED CELL DISTRIBUTION WIDTH 15.8 % (11.5-14.5); WHITE BLOOD COUNT 8.8 x10^3/uL (4.0-11.0)
[2017-12-22] MEDS: IV NORMAL SALINE 1000ML BAG 1,000 ML IV SCH (06:18)
[2017-12-22 07:00] VITALS: BP 113/63
[2017-12-22] MEDS ORDERED: PANTOPRAZOLE 40 MG TABLET.DR. PO PRN (07:30)
[2017-12-22] MEDS: MULTIVITAMIN with MINERAL TABLET. PO SCH (09:00)
--- NOTE | 2017-12-22 10:16 | PDOC ---
Subjective: Subjective: Bleeding yesterday, rapid response called. No bleeding today. Wants to know if her UTI could cause bleeding or be bad for her previous knee surgeries. Objective: Objective: Per RN - pt reports dizziness, vitals stable. Vital Signs: Vital Signs Date Time Temp Pulse Resp B/P (MAP) Pulse Ox O2 Delivery O2 Flow Rate FiO2 12/22/17 07:00 98.1 85 16 113/63 (80) 97 Room Air 98.1 Labs: Laboratory Tests Test 12/21/17 11:30 12/21/17 13:25 12/21/17 17:30 12/22/17 01:00 White Blood Count 9.1 x10^3/uL 10.1 x10^3/uL 8.7 x10^3/uL Red Blood Count 3.20 x10^6/uL 3.18 x10^6/uL 2.62 x10^6/uL Hemoglobin 9.7 g/dL 9.7 g/dL 8.4 g/dL 8.0 g/dL Hematocrit 29.1 % 28.9 % 24.8 % 23.9 % Mean Corpuscular Volume 91 fL 91 fL 91 fL Mean Corpuscular Hemoglobin 30 pg 31 pg 31 pg Mean Corpuscular Hemoglobin Concent 33 g/dL 34 g/dL 34 g/dL 34 g/dL Red Cell Distribution Width 15.7 % 16.2 % 16.1 % Platelet Count 214 x10^3/uL 217 x10^3/uL 205 x10^3/uL Test 12/22/17 02:00 White Blood Count 8.8 x10^3/uL Red Blood Count 2.59 x10^6/uL Hemoglobin 8.0 g/dL Hematocrit 23.6 % Mean Corpuscular Volume 91 fL Mean Corpuscular Hemoglobin 31 pg Mean Corpuscular Hemoglobin Concent 34 g/dL Red Cell Distribution Width 15.8 % Platelet Count 202 x10^3/uL Imaging: Bleeding Scan 12/21/17 IMPRESSION: Negative radionuclide GI bleeding scan. PE: GEN: NAD LUNGS: CTAB HEART: RRR ABD: NABS, S/ND/NT NEURO/PSYCH: A & O 3 A/P: Recurrent rectal bleeding -similar to presumed diverticular bleeds in 2013 and 2015 -last colonoscopy in 2013, EGD this admission w/ non-erosive gastritis -Hgb stable (8), bleeding scan neg, CT unrevealing UTI - per primary -- Reviewed w/ Dr. Trevino - observe for now, consider colonoscopy if bleeding recurs. THONY CONSTANTINO Dec 22, 2017 10:16
[2017-12-22 11:00] VITALS: BP 121/61
[2017-12-22] MEDS: cefTRIAXone IV Push 1 GM VIAL. IVP SCH (14:32)
[2017-12-22 15:00] VITALS: BP 108/72
--- NOTE | 2017-12-22 17:14 | PDOC ---
PROGRESS NOTES Subjective No further bleeding today, tolerating clear liquids, no BM since yesterday. No pain. Still on IV fluid. Hgb stabilized at 8.0 Objective Afebrile General: NAD Heart: RRR Lungs: CTA Abd: soft, non tender Ext: no C/C/E Hgb: 8.0 Vital Signs Vital Signs Date Time Temp Pulse Resp B/P (MAP) Pulse Ox O2 Delivery O2 Flow Rate FiO2 12/22/17 15:00 98.1 83 16 108/72 (84) 98 Room Air 98.1 12/21/17 03:00 2.0 I & O Intake and Output 12/22/17 07:00 Intake Total 120 ml Balance 120 ml Intake Oral 120 ml # Voids 7 # Bowel Movements 2 Assessment and Plan Problems Medical Problems: (1) Acute lower GI bleeding - advance diet, await next BM, if no further bleeding discharge over weekend, if further bleeding then colonoscopy Monday Status: Acute Bienvenido MONTERO MD Dec 22, 2017 17:14
[2017-12-22 19:00] VITALS: BP 110/60
[2017-12-22 23:00] VITALS: BP 128/73
[2017-12-23 03:00] VITALS: BP 142/78
[2017-12-23 05:45] LABS: BASO % 0 % (0-3); EOS # 0.2 x10^3/uL (0.0-0.7); EOS % 2 % (0-3); HEMATOCRIT 23.4 % (36.0-47.0); HEMOGLOBIN 7.7 g/dL (12.0-15.5); LYMPH # 1.3 x10^3/uL (1.0-4.8); LYMPH % 13 % (24-48); MEAN CORPUSCULAR HEMOGLOBIN 30 pg (25-35); MEAN CORPUSCULAR HGB CONC 33 g/dL (31-37); MEAN CORPUSCULAR VOLUME 92 fL (79-100); MONO # 0.9 x10^3/uL (0.0-1.1); MONO % 9 % (0-9); NEUT # 7.4 x10^3uL (1.8-7.7); NEUT % 76 % (31-73); PLATELET COUNT 242 x10^3/uL (140-400); RED BLOOD COUNT 2.54 x10^6/uL (3.50-5.40); RED CELL DISTRIBUTION WIDTH 16.1 % (11.5-14.5); WHITE BLOOD COUNT 9.8 x10^3/uL (4.0-11.0)
[2017-12-23 07:00] VITALS: BP 136/81
[2017-12-23] MEDS: MULTIVITAMIN with MINERAL TABLET. PO SCH (09:18)
[2017-12-23 11:28] VITALS: BP 155/84
--- NOTE | 2017-12-23 13:32 | PDOC ---
PROGRESS NOTES Subjective Tolerating diet, no further GI bleeding but no additional BMs. Hgb dropped from 8 to 7.7. She was a little dizzy getting back into bed Objective Afebrile General: NAD Heart: RRR Lungs: CTA Abd: soft and non tender Ext: no edema Hgb: 7.7 Vital Signs Vital Signs Date Time Temp Pulse Resp B/P (MAP) Pulse Ox O2 Delivery O2 Flow Rate FiO2 12/23/17 11:28 97.5 74 18 155/84 (107) 100 Room Air 97.5 12/23/17 08:00 2.0 I & O Intake and Output 12/23/17 07:00 Intake Total 270 ml Balance 270 ml Intake Oral 270 ml # Voids 3 Assessment and Plan Problems Medical Problems: (1) Acute lower GI bleeding- awaiting BM, if bleeding recurs -> colonoscopy (2) acute blood loss anemia - add iron, stool softener (3) E. 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
[2017-12-23] MEDS: FERROUS SULFATE 325 MG TABLET. PO SCH (13:48)
[2017-12-23] MEDS: DOCUSATE SODIUM 100 MG CAPSULE. PO SCH (13:48)
[2017-12-23] MEDS: cefTRIAXone IV Push 1 GM VIAL. IVP SCH (13:48)
[2017-12-23 15:23] VITALS: BP 133/64
[2017-12-23 19:00] VITALS: BP 136/79
[2017-12-23] MEDS: LACTOBACILLUS RHAMNOSUS GG 1 CAPSULE. PO SCH (21:18)
[2017-12-23 23:00] VITALS: BP 153/86
[2017-12-24 03:00] VITALS: BP 122/80
[2017-12-24 04:51] LABS: BASO % 1 % (0-3); EOS # 0.2 x10^3/uL (0.0-0.7); EOS % 2 % (0-3); HEMATOCRIT 22.7 % (36.0-47.0); HEMOGLOBIN 7.8 g/dL (12.0-15.5); LYMPH # 1.8 x10^3/uL (1.0-4.8); LYMPH % 22 % (24-48); MEAN CORPUSCULAR HEMOGLOBIN 31 pg (25-35); MEAN CORPUSCULAR HGB CONC 34 g/dL (31-37); MEAN CORPUSCULAR VOLUME 91 fL (79-100); MONO # 0.8 x10^3/uL (0.0-1.1); MONO % 10 % (0-9); NEUT # 5.4 x10^3uL (1.8-7.7); NEUT % 66 % (31-73); PLATELET COUNT 243 x10^3/uL (140-400); RED CELL DISTRIBUTION WIDTH 16.4 % (11.5-14.5); WHITE BLOOD COUNT 8.2 x10^3/uL (4.0-11.0)
[2017-12-24 07:00] VITALS: BP 175/99
[2017-12-24] MEDS: FERROUS SULFATE 325 MG TABLET. PO SCH (09:07)
[2017-12-24] MEDS: DOCUSATE SODIUM 100 MG CAPSULE. PO SCH (09:07)
[2017-12-24] MEDS: MULTIVITAMIN with MINERAL TABLET. PO SCH (09:07)
[2017-12-24] MEDS: LACTOBACILLUS RHAMNOSUS GG 1 CAPSULE. PO SCH ×2 (09:07→20:27)
--- NOTE | 2017-12-24 10:28 | PDOC ---
PROGRESS NOTES Subjective No BM, no obvious bleeding, Hgb stable, some LLQ abd discomfort, passing gas, tolerating diet, didn't sleep well last night Objective Afebrile General: NAD Heart: RRR Lungs: CTAB Abd: LLQ tenderness with fullness suggestive of stool Ext: mild sciatic pain right leg, no edema Hgb: 7.8 Vital Signs Vital Signs Date Time Temp Pulse Resp B/P (MAP) Pulse Ox O2 Delivery O2 Flow Rate FiO2 12/24/17 08:00 Room Air 12/24/17 07:00 97.9 85 16 175/99 (124) 99 97.9 12/23/17 08:00 2.0 I & O Intake and Output 12/24/17 07:00 Intake Total 560 ml Output Total 1200 ml Balance -640 ml Intake Oral 560 ml Output Urine Total 1200 ml # Voids 14 Assessment and Plan (1) Acute lower GI bleeding- awaiting BM so will give dose of Miralax, if bleeding recurs -> colonoscopy; if no bleeding discharge (2) acute blood loss anemia - stable, added iron, stool softener (3) E. 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
[2017-12-24] MEDS ORDERED: POLYETHYLENE GLYCOL 3350 17 GM PACKET. PO ONE (11:00)
[2017-12-24 11:44] VITALS: BP 146/75
[2017-12-24] MEDS: cefTRIAXone IV Push 1 GM VIAL. IVP SCH (13:58)
[2017-12-24 15:18] VITALS: BP 125/84
[2017-12-24 19:00] VITALS: BP 132/80
[2017-12-24 22:51] VITALS: BP 129/78
[2017-12-25 03:00] VITALS: BP 147/84
[2017-12-25 05:29] LABS: HEMATOCRIT 22.5 % (36.0-47.0); HEMOGLOBIN 7.8 g/dL (12.0-15.5); RED BLOOD COUNT 2.47 x10^6/uL (3.50-5.40); RED CELL DISTRIBUTION WIDTH 16.6 % (11.5-14.5); WHITE BLOOD COUNT 9.2 x10^3/uL (4.0-11.0)
[2017-12-25 07:00] VITALS: BP 124/81
[2017-12-25] MEDS: DOCUSATE SODIUM 100 MG CAPSULE. PO SCH (08:46)
[2017-12-25] MEDS: MULTIVITAMIN with MINERAL TABLET. PO SCH (08:47)
[2017-12-25] MEDS: FERROUS SULFATE 325 MG TABLET. PO SCH (08:47)
--- NOTE | 2017-12-25 09:26 | PDOC ---
Subjective: Subjective: Formed black stools, maybe some intermittent mid abd cramping and occasional nausea. Asks about risks of colonoscopy with diverticular disease, wonders about "an air leak." Objective: Objective: Note took Miralax yesterday. Vital Signs: Vital Signs Date Time Temp Pulse Resp B/P (MAP) Pulse Ox O2 Delivery O2 Flow Rate FiO2 12/25/17 07:00 97.5 64 18 124/81 (95) 98 Room Air 97.5 Labs: Laboratory Tests Test 12/25/17 04:36 White Blood Count 9.2 x10^3/uL Red Blood Count 2.47 x10^6/uL Hemoglobin 7.8 g/dL Hematocrit 22.5 % Mean Corpuscular Volume 91 fL Mean Corpuscular Hemoglobin 32 pg Mean Corpuscular Hemoglobin Concent 35 g/dL Red Cell Distribution Width 16.6 % Platelet Count 255 x10^3/uL PE: GEN: NAD, sitting on edge of bed eating scrambled eggs with ham and also toast LUNGS: CTAB HEART: RRR ABD: NABS, S/ND, not particularly tender NEURO/PSYCH: A & O 3 A/P: Recurrent rectal bleeding - resolved -probable diverticular bleeds in the past -last colonoscopy in 2013, EGD this admission w/ non-erosive gastritis -Hgb stable 7.8-8 since 12/22 on PO iron QD -- Reviewed w/ Dr. Trevino - DC per primary (okay w/ GI) and consider outpt colonoscopy. Would continue PO iron - will increase to BID. Use Miralax PRN/adjusting dose as needed. THONY CONSTANTINO Dec 25, 2017 09:26
[2017-12-25] MEDS ORDERED: POLYETHYLENE GLYCOL 3350 17 GM PACKET. PO PRN (09:30)
[2017-12-25] MEDS: LACTOBACILLUS RHAMNOSUS GG 1 CAPSULE. PO SCH (10:07)
[2017-12-25 11:00] VITALS: BP 132/84
[2017-12-25] MEDS ORDERED: CEFU500T46 PO (13:19)
[2017-12-25] MEDS ORDERED: LACT1CAP19 PO (13:19)
[2017-12-25] MEDS ORDERED: DOCU-109 PO (13:19)
[2017-12-25] MEDS: cefTRIAXone IV Push 1 GM VIAL. IVP SCH (14:00)
--- NOTE | 2017-12-25 17:55 | PDOC3 ---
Discharge Summary [facility] Date of Admission: Dec 18, 2017 Discharge Date: Dec 25, 2017 Admitting Diagnosis GI bleed Final Diagnosis Problems Medical Problems: (1) Acute lower GI bleeding Status: Acute CONSULTS [facility] Procedures EGD transfusion of 2 units PRBC bleeding scan x 2 Brief Hospital Course Ms. Suresh is a 72 old who presented with: (1) Acute lower GI bleeding- bleeding scan negative x 2, EGD showing gastritis, she initially improved after 2 units of pRBC transfusion but then bled a second time most likely from a diverticular source. BM yesterday yrn and this am without blood, colonoscopy to be considered as outpatient but considered too high risk while inpatient (2) acute blood loss anemia - stable, added iron, stool softener, curretn Hgb 7.8 (3) E. 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 but she did not tolerated cipro, treated with IV rocephin and will be transitioned to po ceftin 250 mg bid x 5 days (4) hypertension - generally controlled, occasionally elevated despite holding several of her routine meds for now due to dizziness, resume hydralazine but hold others Disposition home CONDITION AT DISCHARGE: Improved, Stable Diet diverticular Scheduled Acetaminophen (Tylenol), 1 TAB PO PRN Q4HRS, (Reported) Cefuroxime Axetil (Cefuroxime), 1 TAB PO BID Docusate Sodium (Colace), 100 MG PO DAILY Hydralazine Hcl (Hydralazine Hcl), 1 TAB PO BID, (Reported) Lactobacillus Rhamnosus Gg (Culturelle), 1 CAP PO BID Multivitamin (Multivitamins), 1 TAB PO DAILY, (Reported) Scheduled PRN Omeprazole (Omeprazole), 1 CAP PO PRN DAILY PRN for HEARTBURN / GAS, (Reported) Discontinued Medications Aspirin (Aspirin), 1 TAB PO DAILY, (Reported) Diltiazem Hcl (Cardizem Cd), 1 CAP PO DAILY, (Reported) Losartan Potassium (Losartan Potassium), 1 TAB PO DAILY, (Reported) Follow Up 1-2 weeks Bienvenido MONTERO MD Dec 25, 2017 17:55
[2017-12-25] MEDS ORDERED: FERROUS SULFATE 325 MG TABLET. PO SCH (21:00)
== END 2017-12-25 16:00 | disposition home or self-care (01) | DRG 378 ==
LOC: ER 17:26 → 1 WEST ICU 21:30 → 5 NORTH 12-19 20:10
PROVIDERS: ADMIT Family Medicine; ATTEND Family Medicine
PROC: 30233N1 Transfusion of Nonautologous Red Blood Cells into Peripheral Vein, Percutaneous Approach (ICD-10-PCS; principal; 2017-12-19)
PROC: 0DJ08ZZ Inspection of Upper Intestinal Tract, Via Natural or Artificial Opening Endoscopic (ICD-10-PCS; 2017-12-20)
DX: K57.91 Diverticulosis of intestine, part unspecified, without perforation or abscess with bleeding (principal); D62 Acute posthemorrhagic anemia; E44.0 Moderate protein-calorie malnutrition; N39.0 Urinary tract infection, site not specified; K21.9 Gastro-esophageal reflux disease without esophagitis; I10 Essential (primary) hypertension; M81.0 Age-related osteoporosis without current pathological fracture; M47.899 Other spondylosis, site unspecified; E78.5 Hyperlipidemia, unspecified; K29.60 Other gastritis without bleeding; I89.0 Lymphedema, not elsewhere classified; K59.00 Constipation, unspecified; N32.81 Overactive bladder; B96.20 Unspecified Escherichia coli [E. coli] as the cause of diseases classified elsewhere; Z96.659 Presence of unspecified artificial knee joint; Z68.29 Body mass index [BMI] 29.0-29.9, adult; Z98.891 History of uterine scar from previous surgery; Z88.5 Allergy status to narcotic agent; Z86.72 Personal history of thrombophlebitis; Z79.899 Other long term (current) drug therapy
CPT/HCPCS: 36415; 74177; 78278; 80048; 80053; 81001; 82553; 83735; 84484; 85014; 85018; 85025; 85027; 85610; 85730; 86850; 86900; 86901; 86920; 87086; 87186; 87641; 93005; 96365; 96366; 96374; 96375; A9560; C9113; J0696; J2405; J2704; J7030; J7120; P9016; Q9967; 97110; 97116; 97530; 97535; 99285-25

== ENCOUNTER → 2018-05-22 | Outpatient (CLI) | payer BC ==
[~2018-05-22] MED LIST changes: +ASPI-630 PO; +CEFU500T46 PO; +DOCU-109 PO; +LACT1CAP19 PO; +LOSA100T14 PO; -LOSA100T7 PO; +OMEP20CA10 PO; -OMEP20CA9 PO
--- NOTE | 2018-05-22 14:09 | RAD ---
MR#: [id number] Date of Study: 05/22/2018 Ordering Physician: DIANA PETTY, Referring Physician: DIANA PETTY, Tech: DAWSON Duong, [facility], RTR APPROVED REPORT Bilateral Lower Extremity Venous Study for DVT Patient Location: OUT-PATIENT Indications Lower Extremity Edema: The bilateral lower extremity deep veins were evaluated for thrombus with color Doppler, spectral and grayscale images. On the right the grayscale images of the common femoral, superficial femoral and popliteal veins do n ot demonstrate any evidence of thrombus and these veins appear to be compressible. The below-knee vei ns were not well visualized but grossly appear to be compressible. Spectral imaging and color Doppler do not reveal any evidence of obstruction to flow with normal respirophasic variation above the knee . Below the knee there is spontaneous flow noted. On the left, the grayscale images of the common femoral, superficial femoral and popliteal veins do n ot demonstrate any evidence of thrombus and these veins appear to be compressible. The below-knee vei ns again were not well visualized but grossly appear to be compressible. Spectral imaging and color D oppler do not reveal any evidence of obstruction to flow with normal respirophasic variation above th e knee. The below-knee veins demonstrate spontaneous flow. Incidental lymph node measuring 2.5 cm x 0.7cm x 1.0 cm. Critical Notification Critical Value: No <Conclusion> No evidence of DVT in the bilateral lower extremities. Incidental likely reactive lymph node measuring 2.5 cm x 0.7 cm x 1.0 cm. Signed by : Sylvester Oakley, Electronically Approved : 05/22/2018 14:08:29
--- NOTE | 2018-05-22 14:12 | RAD ---
MR#: [id number] Date of Study: 05/22/2018 Ordering Physician: DIANA PETTY, Referring Physician: DIANA PETTY, Tech: DAWSON Duong, RDMS, RTR APPROVED REPORT Patient Location : OUT-PATIENT Indications Lower Extremity Edema : Bilateral Grayscale images of the bilateral saphenofemoral junctions do not reveal any obvious evidence of thro mbus. The right great saphenous vein measures 5.5 mm and the left great saphenous vein measures 6.6 m m. There is no evidence of reflux. Bilateral lesser saphenous veins do not show any obvious evidence of reflux. The bilateral anterior accessory saphenous veins also do not show any evidence of reflux. Past History Compression Stockings : Yes Deep System Deep Venous Thrombosis present : No Accessory Veins Right Anterior Accessory Vein : Present : Yes Reflux : No Leftt Anterior Accessory Vein : Present : Yes Reflux : No Critical Notification Critical Value: No <Conclusion> negative for reflux bilat gsv's and bilat ssv's Signed by : Sylvester Oakley, Electronically Approved : 05/22/2018 14:12:21
== END | disposition home or self-care (01) ==
LOC: KCIC US 11:43
PROVIDERS: ATTEND Internal Medicine Cardiovascular Disease
DX: R60.0 Localized edema (principal)
CPT/HCPCS: 93970

== ENCOUNTER → 2018-08-13 | Outpatient (CLI) | payer BC ==
--- NOTE | 2018-08-13 16:57 | RAD ---
Bilateral lower extremity arterial Doppler dated 08/13/2018. No comparison available. Clinical data indication: Claudication. FINDINGS: Grayscale, color-flow and spectral waveform analysis performed to include the arterial tree of both lower extremity. There is luminal irregularity throughout consistent with diffuse atherosclerotic plaquing. No focal stenosis. Waveforms are triphasic to biphasic throughout. The velocity measurements are within the range of normal. IMPRESSION: Diffuse atherosclerotic plaquing with triphasic to biphasic flow bilaterally, consistent with mild to moderate distal disease. No focal hemodynamically significant stenosis is apparent. Electronically signed by: Jose Luis Stewart MD (08/13/2018 4:54 PM) [id number]
== END | disposition home or self-care (01) ==
LOC: US 15:58
PROVIDERS: ATTEND Internal Medicine Cardiovascular Disease
DX: I70.203 Unspecified atherosclerosis of native arteries of extremities, bilateral legs (principal)
CPT/HCPCS: 93925

== ENCOUNTER → 2019-09-24 | Outpatient (CLI) | payer BC ==
[~2019-09-24] MED LIST changes: +MULT-445 PO; -MULT1TAB52 PO; -OMEP20CA10 PO; +OMEP20CA16 PO
--- NOTE | 2019-09-24 14:11 | CARD ---
MR#: [id number] Date of Study: 09/24/2019 Ordering Physician: DIANA PETTY, Referring Physician: DIANA PETTY, Tech: Kavita Carvalho APPROVED REPORT EXAM: Two-dimensional and M-mode echocardiogram with Doppler and color Doppler. Other Information Quality : AverageHR: 82bpm INDICATION Murmur RISK FACTORS Hypertension Hyperlipidemia 2D DIMENSIONS Left Atrium(2D)2.9 (1.6-4.0cm)IVSd1.2 (0.7-1.1cm) Aortic Root(2D)3.2 (2.0-3.7cm)LVDd4.3 (3.9-5.9cm) LVOT Diameter2.2 (1.8-2.4cm)PWd1.1 (0.7-1.1cm) LVDs2.6 (2.5-4.0cm)FS (%) 38.8 % SV56.4 mlLVEF(%)69.5 (>50%) Aortic Valve AoV Peak Vin.209.2cm/sAoV VTI35.6cm AO Peak GR.17.5mmHgLVOT Peak Vin.107.1cm/s LVOT VTI 25.12cmAO Mean GR.8mmHg JM (VMAX)1.15ef8LHI (VTI)2.66cm2 AI P 1/2 Lgmk767ye Mitral Valve MV E Mwvubfhn19.8cm/sMV DECEL [id number] MV A Dgjerdez45.1cm/sMV E Mean Gr.2mmHg MV LWI49tzD/A Ratio0.8 MVA (PHT)3.03cm2 TDI E/Lateral E'8.9E/Medial E'11.1 Pulmonary Valve PV Peak Twfmpnfz93.4cm/sPV Peak Grad.3mmHg Tricuspid Valve TR P. Nfmstdbp304qo/sRAP AKEMEYOY4lsYd TR Peak Gr.85svBoTEFQ47wdDu Pulmonary Vein S1 Ysmsuvyc68.3cm/sD2 Kjnrsapn58.5cm/s PVa cclobwov293dzwj LEFT VENTRICLE The left ventricle is normal size. There is mild concentric left ventricular hypertrophy. The left ve ntricular systolic function is normal. The Ejection Fraction is 55-60%. There is normal LV segmental wall motion. Transmitral Doppler flow pattern is Grade I-abnormal relaxation pattern. RIGHT VENTRICLE The right ventricle is normal size. There is normal right ventricular wall thickness. The right ventr icular systolic function is normal. ATRIA The left atrium size is normal. The right atrium size is normal. The interatrial septum is intact wit h no evidence for an atrial septal defect or patent foramen ovale as noted on 2-D or Doppler imaging. AORTIC VALVE The aortic valve is thickened but opens well. Doppler and Color Flow revealed trace aortic regurgitat ion. Calculated aortic valve area is 2.5 cm2 with maximum pressure gradient of 19 mmHg and mean press ure gradient of 9 mmHg. MITRAL VALVE The mitral valve is thickened but opens well. There is no evidence of mitral valve prolapse. There is no mitral valve stenosis. Doppler and Color-flow revealed trace mitral regurgitation. TRICUSPID VALVE The tricuspid valve is normal in structure and function. Doppler and Color Flow revealed mild to mode rate tricuspid regurgitation with an estimated PAP of 54 mmHg. There is no tricuspid valve stenosis. PULMONIC VALVE The pulmonic valve is not well visualized. Doppler and Color Flow revealed trace to mild pulmonic angela vular regurgitation. GREAT VESSELS The aortic root is normal in size. The IVC is normal in size and collapses >50% with inspiration. PERICARDIAL EFFUSION There is no evidence of significant pericardial effusion. Critical Notification Critical Value: No <Conclusion> The left ventricular systolic function is normal. The Ejection Fraction is 55-60%. There is normal LV segmental wall motion. Transmitral Doppler flow pattern is Grade I-abnormal relaxation pattern. Trace mitral regurgitation. Mild to moderate tricuspid regurgitation with an estimated PAP of 54 mmHg. There is no evidence of significant pericardial effusion. Signed by : Ovidio Zamora, Electronically Approved : 09/24/2019 14:11:08
--- NOTE | 2019-09-24 14:56 | RAD ---
MR#: [id number] Date of Study: 09/24/2019 Ordering Physician: DIANA PETTY, Referring Physician: DIANA PETTY, Tech: Kavita Doss RDMS, WAGNER, RTR APPROVED REPORT Patient Location : OUT-PATIENT Indications Lower Extremity Pain : Bilateral Lower Extremity Edema : Bilateral Findings Grayscale images of the bilateral saphenofemoral junctions did not reveal any obvious evidence of thr ombus. The right great saphenous vein measures 4.1 mm and the left great saphenous vein measures 3.8 mm. No evidence of reflux is identified in the bilateral greater saphenous veins. Bilateral lesser saphenous veins did not show any evidence of reflux. Critical Notification Critical Value: No <Conclusion> 1. Negative for bilateral greater and lesser saphenous vein reflux Signed by : Sylvester Oakley, Electronically Approved : 09/24/2019 14:55:49
--- NOTE | 2019-09-24 14:59 | RAD ---
MR#: [id number] Date of Study: 09/24/2019 Ordering Physician: DIANA PETTY, Referring Physician: DIANA PETTY, Tech: Kavita Doss RDMS, RVT, RTR APPROVED REPORT Bilateral Lower Extremity Venous Study for DVT Patient Location: OUT-PATIENT Indications Lower Extremity Pain: Bilateral Lower Extremity Edema: Bilateral Findings The bilateral lower extremity deep veins were evaluated for thrombus with color Doppler, spectral and grayscale images. On the right the grayscale images of the common femoral, superficial femoral and popliteal veins do n ot demonstrate any evidence of thrombus and these veins appear to be compressible. The below-knee vei ns were not well visualized but grossly appear to be compressible. Spectral imaging and color Doppler do not reveal any evidence of obstruction to flow with normal respirophasic variation above the knee . Below the knee there is spontaneous flow noted. On the left, the grayscale images of the common femoral, superficial femoral and popliteal veins do n ot demonstrate any evidence of thrombus and these veins appear to be compressible. The below-knee vei ns again were not well visualized but grossly appear to be compressible. Spectral imaging and color D oppler do not reveal any evidence of obstruction to flow with normal respirophasic variation above th e knee. The below-knee veins demonstrate spontaneous flow. Critical Notification Critical Value: No <Conclusion> 1. Negative for DVT in the bilateral lower extremities Signed by : Sylvester Oakley, Electronically Approved : 09/24/2019 14:58:34
--- NOTE | 2019-09-24 16:35 | RAD ---
MR#: [id number] Date of Study: 09/24/2019 Ordering Physician: DIANA PETTY, Referring Physician: DIANA PETTY, Tech: Kavita Doss, ANNEL, RVT, RTR APPROVED REPORT Patient Location: OUT-PATIENT Indications Edema Bilateral Leg Pain VELOCITY AND DOPPLER WAVEFORM ANALYSIS RIGHT cm/secWaveformSeverity LEFT cm/secWaveform Severity pCFA 144.0pCFA 119.2 Prof Fem Art. 89.4Prof Fem Art. 109.4 Fem Art Prox. 118.2Fem Art Prox. 110.4 Fem Art Mid. 116.5Fem Art Mid. 117.8 Fem Art Dist. 120.6Fem Art Dist. 118.8 Pop Art(AK) 80.2Pop Art(AK) 95.7 HOOK PULLER Prox. 58.4PTA Prox. 42.6 HOOK PULLER Dist. 32.2PTA Dist. 61.0 Per Art Prox. 73.5Per Art Prox. 97.8 PHIL Prox. 77.5ATA Prox. 72.0 DPA 54DPA 72 Findings Grayscale images of the bilateral lower extremity arterial vessels demonstrate mild diffuse intimal h yperplasia. There is biphasic and triphasic waveforms throughout the lower extremity arterial course . There is three-vessel runoff below the knee. No focal obstruction identified. Critical Notification Critical Value: No <Conclusion> 1. No evidence of lower extremity arterial disease. Signed by : Sylvester Oakley, Electronically Approved : 09/24/2019 16:34:34
== END | disposition home or self-care (01) ==
LOC: ECHO 10:42
PROVIDERS: ATTEND Internal Medicine Cardiovascular Disease
DX: I08.8 Other rheumatic multiple valve diseases (principal); I10 Essential (primary) hypertension; E78.5 Hyperlipidemia, unspecified; R01.1 Cardiac murmur, unspecified; R60.0 Localized edema
CPT/HCPCS: 93306; 93925; 93970